=== PATIENT | female | born 1985 | race Caucasian/White ===

== ENCOUNTER 2016-09-06 05:32 | Inpatient (IN) | payer BC ==
[~2016-09-06] VITALS: Ht 160 cm; Wt 80.0 kg
[~2016-09-06 05:32] MED LIST: BIOT10TA2 PO; PREN200C2 PO
[2016-09-06] MEDS ORDERED: LR 800 ML IV SCH (05:45)
[2016-09-06] MEDS ORDERED: BICITRA 30ML SOLN UDC PO ONE (05:45)
[2016-09-06] MEDS ORDERED: ceFAZolin SOD 1 GM in D5W MINI-BAG PLUS 50 ML IV SCH (06:00)
[2016-09-06 06:10] LABS: MEAN CORPUSCULAR HEMOGLOBIN 34.4 pg (27.0-33.0); MEAN CORPUSCULAR VOLUME 93.9 fl (80.0-96.0); WHITE BLOOD COUNT 9.7 K/mm3 (4.0-10.0)
[2016-09-06 06:11] LABS: MEAN CORPUSCULAR HGB CONC 36.5 g/dl (32.0-36.5)
[2016-09-06] MEDS ORDERED: LR 1,000 ML IV SCH ×3 (06:45→09:00)
[2016-09-06] MEDS ORDERED: OXYC1TAB23 PO (07:33)
[2016-09-06] MEDS ORDERED: MORPHINE PRES-FREE INJ 10 MG/10 ML VIAL (J2274) As Ordered ONE (07:39)
[2016-09-06] MEDS ORDERED: METOCLOPRAMIDE INJ 10MG/2ML VIAL (J2765) IV PRN ×2 (07:44→09:00)
[2016-09-06] MEDS ORDERED: NALOXONE INJ 0.4 MG/1 ML VIAL (J2310) IV PRN ×2 (07:44)
[2016-09-06] MEDS ORDERED: NALBUPHINE HCL 10 MG/ML AMP (J2300) IV PRN (07:44)
[2016-09-06] MEDS ORDERED: ONDANSETRON 4MG/2ML VIAL (J2405) IV PRN ×3 (07:44→09:00)
[2016-09-06] MEDS ORDERED: OXYTOCIN DRIP 30 UNITS in APPROPRIATE DILUENT 1 EA IV ONE (07:45)
[2016-09-06] MEDS ORDERED: RHOGAM 300 MCG (1500 IU) INJ (J2790) IM SCH (07:45)
[2016-09-06] MEDS ORDERED: PERCOCET 5MG/325MG TAB PO PRN (07:45)
[2016-09-06] MEDS ORDERED: MEASLES,MUMPS,RUBELLA VACCINE INJ (MMR-II) (90707) SC SCH (07:45)
[2016-09-06] MEDS ORDERED: OXYTOCIN INJ 10 UNITS/ML VIAL (J2590) As Ordered ONE (07:52)
[2016-09-06] MEDS ORDERED: fentaNYL 100 MCG/2 ML INJECTION (J3010) As Ordered ONE (08:02)
[2016-09-06] MEDS ORDERED: MIDAZOLAM INJ 2 MG/2 ML VIAL (J2250) As Ordered ONE (08:05)
[2016-09-06] MEDS ORDERED: LIDOCAINE 2% INJ 100 MG/5 ML SDV (FOR ANES.) As Ordered ONE (08:20)
[2016-09-06] MEDS ORDERED: KETOROLAC 60 MG/2 ML VIAL (J1885) As Ordered ONE (08:20)
[2016-09-06] MEDS ORDERED: dexameTHASONE 4 MG/ML 1ML VIAL (J1100) As Ordered ONE (08:20)
[2016-09-06] MEDS ORDERED: PROPOFOL 200 MG/20 ML VIAL As Ordered ONE (08:20)
[2016-09-06] MEDS ORDERED: ONDANSETRON 4MG/2ML VIAL (J2405) As Ordered ONE (08:20)
[2016-09-06] MEDS ORDERED: fentaNYL 100 MCG/2 ML INJECTION (J3010) IV PRN (09:00)
[2016-09-06 10:17] VITALS: BP 128/60
[2016-09-06 11:05] VITALS: BP 123/66
[2016-09-06 12:06] VITALS: BP 119/70
[2016-09-06] MEDS: KETOROLAC 30 MG/ML VIAL (J1885) IV SCH ×2 (14:15→20:14)
[2016-09-06] MEDS: PRENATAL VITAMIN TAB PO SCH (14:29)
[2016-09-06 15:01] VITALS: BP 123/60
[2016-09-06 18:25] VITALS: BP 120/58
[2016-09-06 22:00] VITALS: BP 114/55
[2016-09-07 01:49] VITALS: BP 118/57
[2016-09-07] MEDS: KETOROLAC 30 MG/ML VIAL (J1885) IV SCH ×2 (02:09→07:33)
[2016-09-07 05:24] VITALS: BP 109/56
[2016-09-07 06:51] LABS: MEAN CORPUSCULAR HEMOGLOBIN 34.2 pg (27.0-33.0); MEAN CORPUSCULAR HGB CONC 35.3 g/dl (32.0-36.5); RED CELL DISTRIBUTION WIDTH 12.9 % (11.5-14.5)
[2016-09-07] MEDS: PRENATAL VITAMIN TAB PO SCH (07:33)
[2016-09-07 10:31] VITALS: BP 130/65
[2016-09-07] MEDS: PERCOCET 5MG/325MG TAB PO PRN ×2 (14:08→19:52)
[2016-09-07 14:12] VITALS: BP 136/62
[2016-09-07] MEDS: IBUPROFEN 800 MG TAB PO SCH (15:48)
[2016-09-07 18:09] VITALS: BP 118/58
[2016-09-08] MEDS: IBUPROFEN 800 MG TAB PO SCH ×4 (00:09→23:53)
[2016-09-08] MEDS: PERCOCET 5MG/325MG TAB PO PRN ×4 (00:13→23:53)
[2016-09-08 06:31] VITALS: BP 117/69
[2016-09-08] MEDS: PRENATAL VITAMIN TAB PO SCH (07:17)
--- NOTE | 2016-09-08 12:21 | RO ---
DATE OF OPERATION: 09/06/2016 PREOPERATIVE DIAGNOSIS: 39-1/7 weeks breech presentation. POSTOPERATIVE DIAGNOSIS: 39-1/7 weeks breech presentation. PROCEDURE: Primary low transverse section and bilateral tubal ligation. SURGEON: Jovon Cantu MD INTELLECTUAL PROPERTY MANAGER: ANESTHESIA: Spinal. ESTIMATED BLOOD LOSS: 500 mL. URINE OUTPUT: 200 mL. FINDINGS: 3340 gram or 7-pound 6-ounce female , scores 8 and 9, cynthia breech position. Normal uterus, fallopian tubes, and ovaries. DESCRIPTION OF PROCEDURE: Operative summary: The patient taken the operating room, where spinal anesthesia was induced. She was prepped and draped in sterile fashion in the supine position. Mcarthur catheter was placed. A Pfannenstiel skin incision made with the scalpel and carried through to the fascia. The fascia was nicked and extended. The fascia was dissected off the muscle. The peritoneal cavity was entered. A bladder flap was created. A curvilinear incision was made in the lower uterine segment until clear fluid was noted. This was extended manually. The infant was delivered from the cynthia breech position using standard maneuvers without difficulty. The cord was doubly clamped and cut. The was handed off to the awaiting nurses. The placenta was expressed. The uterus was exteriorized and cleared of clots and debris. The uterine incision was closed with 0 Vicryl in a running locked fashion. A second imbricating layer of 0 Vicryl was placed. The fallopian tubes were grasped with david clamps at the mid-portion. A window was created in the broad ligament. A free tie of 3-0 chromic was placed around a segment of tube on either side of the David clamp. A knuckle of tube was excised bilaterally. The peritoneum was closed with 2-0 Vicryl in a running fashion. The fascia was closed with 0 Vicryl in a running fashion. The subcutaneous tissue was irrigated. The skin was closed with 4-0 Monocryl subcuticular sutures. Sponge, instrument, and needle counts were correct. MTDD
[2016-09-08 17:56] VITALS: BP 141/63
[2016-09-09 05:44] VITALS: BP 119/56
[2016-09-09] MEDS: PERCOCET 5MG/325MG TAB PO PRN ×2 (07:35→15:00)
[2016-09-09] MEDS: IBUPROFEN 800 MG TAB PO SCH (07:35)
[2016-09-09] MEDS ORDERED: OXYC1TAB23 PO ×2 (08:07→08:08)
[2016-09-09] MEDS ORDERED: IBUP-1114 PO (08:07)
[2016-09-09] MEDS: PRENATAL VITAMIN TAB PO SCH (09:06)
--- NOTE | 2016-09-10 09:01 | DSES ---
DATE OF ADMISSION: 09/06/2016 DATE OF DISCHARGE: 09/09/2016 31-year-old (G) 2, para (P) 1 female at 39-1/7 weeks gestation presents for section due to breech presentation. She declined attempts at external cephalic version. HOSPITAL COURSE: On 09/06/2016 the patient underwent primary low transverse section and bilateral tubal ligation. The procedure was without complications. Her postoperative course was unremarkable. She had return of bladder and bowel function. She was deemed stable for discharge on postoperative day number three. ADMISSION DIAGNOSIS: , 39 plus weeks, breech. DISCHARGE DIAGNOSIS: Delivered. PROCEDURE: Primary low transverse section and tubal ligation. DISPOSITION: The patient will followup with Dr. Cantu in two weeks. Instructions were reviewed.
== END 2016-09-09 16:45 | disposition home or self-care (01) | DRG 540 ==
LOC: M LDI 05:32 → M OBS 09:58
PROVIDERS: ADMIT Specialist; ATTEND Specialist
PROC: 10D00Z1 Extraction of Products of Conception, Low, Open Approach (ICD-10-PCS; principal; 2016-09-06)
PROC: 0UB70ZZ Excision of Bilateral Fallopian Tubes, Open Approach (ICD-10-PCS; 2016-09-06)
DX: O32.1XX0 Maternal care for breech presentation, not applicable or unspecified (principal); Z30.2 Encounter for sterilization; Z37.0 Single live birth; Z3A.39 39 weeks gestation of pregnancy

== ENCOUNTER → 2018-03-21 | Outpatient (CLI) | payer BC ==
[2018-03-21 16:54] LABS: BASO # 0.1 10^3/uL (0.0-0.2); BASO % 0.8 % (0.0-1.0); EOS # 0.4 10^3/uL (0.0-0.50); EOS % 6.3 % (0.0-3.0); HEMATOCRIT 46.3 % (36.0-47.0); HEMOGLOBIN 15.9 g/dl (12.0-15.5); IMMATURE GRANULOCYTE % 0.3 % (0-3.0); LYMPH # 1.9 10^3/uL (1.5-4.5); LYMPH % 28.9 % (24.0-44.0); MEAN CORPUSCULAR HEMOGLOBIN 33.1 pg (27.0-33.0); MEAN CORPUSCULAR HGB CONC 34.3 g/dl (32.0-36.5); MEAN CORPUSCULAR VOLUME 96.3 fl (80.0-96.0); MONO # 0.5 10^3/uL (0.0-0.8); MONO % 7.5 % (0.0-5.0); NEUTROPHILS # 3.7 10^3/uL (1.8-7.7); NEUTROPHILS % 56.2 % (36.0-66.0); PLATELET COUNT, AUTOMATED 178 10^3/uL (150-450); RED BLOOD COUNT 4.81 10^6/uL (4.00-5.40); RED CELL DISTRIBUTION WIDTH 11.9 % (11.5-14.5); WHITE BLOOD COUNT 6.6 10^3/uL (4.0-10.0)
[2018-03-21 17:29] LABS: ALBUMIN 4.1 GM/DL (3.2-5.2); ALBUMIN/GLOBULIN RATIO 1.46 (1.00-1.93); ALKALINE PHOSPHATASE 92 U/L (45-117); ALT/SGPT 20 U/L (12-78); ANION GAP 8 MEQ/L (8-16); AST/SGOT 10 U/L (7-37); BILIRUBIN,TOTAL 0.6 MG/DL (0.2-1.0); BLOOD UREA NITROGEN 16 MG/DL (7-18); CALCIUM LEVEL 8.8 MG/DL (8.5-10.1); CARBON DIOXIDE LEVEL 27 MEQ/L (21-32); CHLORIDE LEVEL 107 MEQ/L (98-107); CHOLESTEROL LEVEL 102 MG/DL (<200); CHOLESTEROL RISK RATIO 1.758 (<5); CREATININE FOR GFR 0.68 MG/DL (0.55-1.30); GLOMERULAR FILTRATION RATE > 60.0 (>60); GLUCOSE, FASTING 96 MG/DL (70-100); HDL CHOLESTEROL 58 MG/DL (>40); LDL CHOLESTEROL 34.6 MG/DL (<100); NON-HDL-C 44 MG/DL; POTASSIUM SERUM 4.3 MEQ/L (3.5-5.1); SODIUM LEVEL 142 MEQ/L (136-145); THYROID STIMULATING HORMONE 0.971 uIU/ML (0.358-3.740); TOTAL PROTEIN 6.9 GM/DL (6.4-8.2); TRIGLYCERIDES LEVEL 47 MG/DL (<150)
[2018-03-23 12:33] LABS: TOTAL 25(OH) VITAMIN D 24.9 NG/ML (30.0-100.0)
== END ==
LOC: M WUC 08:30
DX: Z00.00 Encounter for general adult medical examination without abnormal findings (principal); E55.9 Vitamin D deficiency, unspecified; R00.2 Palpitations
CPT/HCPCS: 84443

== ENCOUNTER → 2018-11-03 | Outpatient (REF) | payer BC ==
[~2018-11-03] MED LIST changes: +IBUP-1114 PO; +OXYC1TAB23 PO; +PREN200C PO; -PREN200C2 PO
[2018-11-03 15:33] LABS: CHLAMYDIA DNA AMPLIFICATION NEGATIVE (NEGATIVE); GC DNA AMPLIFICATION NEGATIVE (NEGATIVE)
[2018-11-06 14:22] LABS: HPV HYBRID CAPTURE II Negative (Negative)
== END ==
LOC: M LAB REF 13:03
PROVIDERS: ATTEND Advanced Practice Midwife
DX: Z12.4 Encounter for screening for malignant neoplasm of cervix (principal); N76.1 Subacute and chronic vaginitis; Z11.51 Encounter for screening for human papillomavirus (HPV)
CPT/HCPCS: 87491; 87591; 87624; G0123